=== PATIENT | male | born 1945 | race Caucasian/White ===

== ENCOUNTER 2020-09-27 18:00 | Emergency (ER) | payer MEDICARE ==
[2020-09-27 19:00] LABS: #Eosinphils 0.1 thou/uL (0.0-0.7); #Monocytes 1.1 thou/uL (0.11-0.59); #Neutrophils 9.8 thou/uL (1.40-6.50); %Basophils 0.1 % (0.0-1.0); %Eosinophils 1.1 % (0.0-10.0); %Lymphocytes 8.1 % (21.0-51.0); %Neutrophils 81.7 % (42.0-75.0); Hemoglobin 11.8 g/dL (14.0-18.0); Mean Corpuscular HGB CONC 31.7 g/dL (32.0-36.0); Mean Corpuscular Hemoglobin 30.7 pg (27.0-31.0); Mean Platelet Volume 8.5 fL (7.4-10.4); Platelet Count 225 thou/uL (130-400); RBC Distribution Width 12.2 % (11.5-14.5); Red Blood Cell (RBC) Count 3.82 mill/uL (4.70-6.10); White Blood Cell (WBC) Count 11.9 thou/uL (4.8-10.8)
[2020-09-27 19:26] LABS: ALT (SGPT) 15 U/L (8-55); AST (SGOT) 20 U/L (5-34); Alkaline Phosphatase 78 U/L (40-110); Anion Gap 15 mmol/L (10-20); BUN (Urea Nitrogen) 33 mg/dL (8.4-25.7); Bilirubin, Total 0.8 mg/dL (0.2-1.2); Calc. Creatinine Clearance 0 mL/min (70-130); Calcium 9.6 mg/dL (7.8-10.44); Carbon Dioxide 32 mmol/L (23-31); Chloride 100 mmol/L (98-107); Globulin 3.6 g/dL (2.4-3.5); Glucose 133 mg/dL (83-110); Potassium 4.7 mmol/L (3.5-5.1); Protein, Total 7.6 g/dL (5.8-8.1); Sodium 142 mmol/L (136-145)
[2020-09-27] MEDS ORDERED: methylPREDNISolone Sod Succ/PF 125 MG/2 ML VIAL ONE (19:47)
[2020-09-27 20:11] LABS: INR-International Normal Ratio 1.4; PTT 34.3 sec (22.9-36.1)
[2020-09-27] MEDS ORDERED: Furosemide 40 MG/4 ML VIAL ONE (20:54)
== END 2020-09-27 21:11 | disposition home or self-care (01) ==
LOC: ERS 18:00
DX: J44.1 Chronic obstructive pulmonary disease with (acute) exacerbation (principal); I50.9 Heart failure, unspecified; J18.9 Pneumonia, unspecified organism; Z79.899 Other long term (current) drug therapy; Z79.01 Long term (current) use of anticoagulants; Z79.82 Long term (current) use of aspirin; J44.9 Chronic obstructive pulmonary disease, unspecified; I10 Essential (primary) hypertension; E78.00 Pure hypercholesterolemia, unspecified; F17.220 Nicotine dependence, chewing tobacco, uncomplicated
CPT/HCPCS: 36415; 71045; 80053; 85025; 85610; 85730; 93005; 96374; 96375; J1940; J2930

== ENCOUNTER 2021-02-05 17:30 | Inpatient (IN) | payer MEDICARE ==
[~2021-02-05 17:30] MED LIST: Iopamidol-370 76% 500 ML 1 ML ONE
[2021-02-05] MEDS ORDERED: EPINEPHrine 1 MG/10 ML Abboject SYRINGE ONE (17:41)
[2021-02-05] MEDS ORDERED: Sodium Bicarb 50 MEQ/50 ML Abboject 8.4% SYRINGE ONE (17:41)
[2021-02-05] MEDS ORDERED: Ketamine 50 MG/ML (10ML VIAL) ONE (17:50)
[2021-02-05] MEDS ORDERED: Rocuronium Bromide 10 MG/ML (10ML VIAL) ONE (17:50)
[2021-02-05 17:58] LABS: Hemoglobin 11.4 g/dL (14.0-18.0); Mean Corpuscular Hemoglobin 29.1 pg (27.0-31.0); Mean Corpuscular Volume 96.9 fL (78.0-98.0); Red Blood Cell (RBC) Count 3.91 mill/uL (4.70-6.10)
[2021-02-05 17:59] LABS: #Lymphocytes 0.6 thou/uL (1.20-3.40); #Monocytes 1.6 thou/uL (0.11-0.59); #Neutrophils 14.8 thou/uL (1.40-6.50); %Basophils 0.1 % (0.0-1.0); %Eosinophils 0.2 % (0.0-10.0); %Lymphocytes 3.4 % (21.0-51.0); %Monocytes 9.5 % (0.0-10.0); %Neutrophils 86.8 % (42.0-75.0)
[2021-02-05 18:04] LABS: Mean Platelet Volume 8.6 fL (7.4-10.4); Platelet Count 245 thou/uL (130-400); RBC Distribution Width 13.9 % (11.5-14.5)
[2021-02-05 18:08] LABS: INR-International Normal Ratio 1.1; Prothrombin Time 14.4 sec (12.0-14.7)
[2021-02-05 18:10] LABS: PTT 33.9 sec (22.9-36.1)
[2021-02-05] MEDS ORDERED: Norepinephrine 8 MG/0.9% NS 250 ML ONE (18:10)
[2021-02-05 18:12] LABS: Actual Bicarbonate (HCO3a) 40.3 mEq/L (22-28); Base Excess (BEa) 11.5 mEq/L (-2.0 to +3.0); Calcium, Ionized (arterial) 1.12 mmol/L (1.12-1.30); Carboxyhemoglobin (COHb) 0.9 gm% (0.0-3.0); O2 Tension (PaO2), arterial 372.7 mmHg (> 70.0); Potassium - ABG Lab 4.61 mmol/L (3.70-5.30); pH, Arterial 7.32 (7.35-7.45)
[2021-02-05 18:20] LABS: Bacteria/HPF None Seen HPF (None Seen); Bilirubin Negative (Negative); Blood, Urine Trace (Negative); Clarity Turbid (Clear); Glucose, Urine (Dipstick) Normal (Negative); Ketone, Urine Negative (Negative); Leukocyte Negative Leu/uL (Negative); Nitrite Negative (Negative); Protein, Urine (Dipstick) 100 mg/dL (Neg-Trace); RBC/HPF 0-3 HPF (0-3); Squamous Epithelial 0-3 HPF (0-3); WBC/HPF 0-3 HPF (0-3); pH, Urine 5.5 (5.0-9.0)
[2021-02-05 18:20] LABS: Hypochromia SLIGHT = 6-15 cells (100X) (0-5/hpf); MDiff Complete? YES; Platelet Morphology Comment Appears Adequate; Polychromasia SLIGHT = 2-3 cells (100X) (0-2/hpf)
[2021-02-05 18:20] LABS: Peep/CPAP 7.5 cmH2O; Puncture Site RRA
[2021-02-05 18:25] LABS: ALT (SGPT) 27 U/L (8-55); AST (SGOT) 33 U/L (5-34); Alkaline Phosphatase 111 U/L (40-110); BUN (Urea Nitrogen) 34 mg/dL (8.4-25.7); Bilirubin, Total 0.5 mg/dL (0.2-1.2); CK (CPK) 147 U/L (30-200); Calc. Creatinine Clearance 0 mL/min (70-130); Calcium 9.4 mg/dL (7.8-10.44); Globulin 3.5 g/dL (2.4-3.5); Glucose 197 mg/dL (83-110); Protein, Total 7.5 g/dL (5.8-8.1)
[2021-02-05 18:34] LABS: Anion Gap 17 mmol/L (10-20); Carbon Dioxide 34 mmol/L (23-31); Chloride 96 mmol/L (98-107); Potassium 5.3 mmol/L (3.5-5.1); Sodium 142 mmol/L (136-145)
[2021-02-05 18:48] LABS: CKMB 7.1 ng/mL (0-6.6)
[2021-02-05] MEDS ORDERED: Furosemide 40 MG/4 ML VIAL ONE (19:03)
[2021-02-05 19:06] LABS: SARS-CoV-2 NAA Rapid Test Not Detected (NotDetected)
[2021-02-05] MEDS ORDERED: Ondansetron PF 4 MG/2 ML Vial IVP PRN (19:54)
[2021-02-05] MEDS ORDERED: Lorazepam 2 MG/ML VIAL ONE (20:41)
[2021-02-05] MEDS ORDERED: methylPREDNISolone Sod Succ/PF 125 MG/2 ML VIAL IVP SCH (21:00)
[2021-02-05] MEDS ORDERED: Famotidine 20 MG TAB PO SCH (21:00)
[2021-02-05 21:04] LABS: Troponin I 0.048 ng/mL (< 0.028)
[2021-02-05] MEDS ORDERED: methylPREDNISolone Sod Succ/PF 125 MG/2 ML VIAL ONE (21:09)
[2021-02-05] MEDS ORDERED: Cefepime 1 GM VIAL ONE (21:09)
[2021-02-05] MEDS: Cefepime 1 GM in Sodium Chloride 0.9% 100 ML IVPB SCH (21:22)
[2021-02-05 22:04] LABS: Actual Bicarbonate (HCO3a) 37.9 mEq/L (22-28); Analyzer IN Cardio ER; Base Excess (BEa) 10.3 mEq/L (-2.0 to +3.0); Calcium, Ionized (arterial) 1.13 mmol/L (1.12-1.30); Carboxyhemoglobin (COHb) 0.5 gm% (0.0-3.0); Hemoglobin (Hb) 11.5 g/dL (14.0-18.0); Potassium - ABG Lab 4.58 mmol/L (3.70-5.30); pH, Arterial 7.36 (7.35-7.45)
[2021-02-05 22:10] LABS: Puncture Site LRA
[2021-02-05] MEDS ORDERED: Propofol 1,000 MG/100 ML VIAL IV ONE (22:13)
[2021-02-05] MEDS ORDERED: Propofol BOLUS 1,000 MG/100 ML VIAL IV PRN (22:45)
[2021-02-05] MEDS ORDERED: Fentanyl BOLUS 250 ML IVPB PRN (22:45)
[2021-02-05] MEDS ORDERED: Lorazepam 2 MG/ML VIAL SLOW IVP PRN (22:45)
[2021-02-05] MEDS ORDERED: Morphine 2 MG/ML VIAL SLOW IVP PRN (22:45)
[2021-02-05] MEDS: Propofol 1,000 MG/100 ML VIAL IV PRN (22:49)
[2021-02-05 23:57] LABS: Troponin I 0.081 ng/mL (< 0.028)
[2021-02-06] MEDS ORDERED: Norepinephrine 8 MG/0.9% NS 250 ML ONE (03:23)
[2021-02-06] MEDS: Norepinephrine 8 MG/0.9% NS 250 ML IVPB SCH ×2 (03:26→20:19)
[2021-02-06] MEDS ORDERED: Propofol 1,000 MG/100 ML VIAL IV ONE (03:40)
[2021-02-06] MEDS ORDERED: Acetaminophen 325 MG TAB ONE (04:06)
[2021-02-06] MEDS: Acetaminophen 325 MG TAB PO PRN (04:19)
[2021-02-06 04:43] LABS: Band 14 % (5-11); Hemoglobin 10.6 g/dL (14.0-18.0); Hypochromia SLIGHT = 6-15 cells (100X) (0-5/hpf); Lymphocytes 5 % (21-51); MDiff Complete? YES; Mean Corpuscular HGB CONC 29.7 g/dL (32.0-36.0); Mean Corpuscular Hemoglobin 27.7 pg (27.0-31.0); Mean Platelet Volume 9.1 fL (7.4-10.4); Monocytes 3 % (0-10); Neutrophil 78 % (42-75); Platelet Count 238 thou/uL (130-400); Platelet Morphology Comment Appears Adequate; Red Blood Cell (RBC) Count 3.84 mill/uL (4.70-6.10); White Blood Cell (WBC) Count 25.4 thou/uL (4.8-10.8)
[2021-02-06] MEDS: Propofol 1,000 MG/100 ML VIAL IV PRN ×4 (05:05→21:13)
[2021-02-06 05:12] LABS: ALT (SGPT) 29 U/L (8-55); AST (SGOT) 41 U/L (5-34); Albumin 3.5 g/dL (3.4-4.8); Alkaline Phosphatase 94 U/L (40-110); Anion Gap 19 mmol/L (10-20); BUN (Urea Nitrogen) 36 mg/dL (8.4-25.7); Calc. Creatinine Clearance 69 mL/min (70-130); Calcium 9.6 mg/dL (7.8-10.44); Carbon Dioxide 35 mmol/L (23-31); Chloride 95 mmol/L (98-107); Globulin 3.2 g/dL (2.4-3.5); Glucose 152 mg/dL (83-110); Magnesium 2.5 mg/dL (1.6-2.6); Potassium 5.6 mmol/L (3.5-5.1); Protein, Total 6.7 g/dL (5.8-8.1); Sodium 143 mmol/L (136-145)
[2021-02-06] MEDS ORDERED: Dextrose 50% Abboject 50 ML SYRINGE SLOW IVP PRN (05:42)
[2021-02-06] MEDS: Furosemide 40 MG/4 ML VIAL SLOW IVP SCH ×2 (05:53→14:00)
[2021-02-06] MEDS: methylPREDNISolone Sod Succ 40 MG VIAL IVP SCH ×4 (05:53→20:22)
[2021-02-06] MEDS ORDERED: Insulin Regular 300 UNITS/3 ML VIAL IVP SCH (06:00)
[2021-02-06] MEDS ORDERED: Calcium Gluc 4.6 MEQ/10 ML (100 MG/ML) SLOW IVP SCH (06:00)
[2021-02-06] MEDS ORDERED: Vancomycin HCl 2.5 GM in Sodium Chloride 0.9% 500 ML IVPB SCH (07:45)
[2021-02-06 08:57] LABS: Base Excess (BEa) 15.1 mEq/L (-2.0 to +3.0); CO2 Tension 51.4 mmHg (35.0-45.0); Calcium, Ionized (arterial) 1.17 mmol/L (1.12-1.30); Carboxyhemoglobin (COHb) 0.3 gm% (0.0-3.0); Hemoglobin (Hb) 10.5 g/dL (14.0-18.0); O2 Tension (PaO2), arterial 148.8 mmHg (> 70.0); Potassium - ABG Lab 4.22 mmol/L (3.70-5.30); pH, Arterial 7.51 (7.35-7.45)
[2021-02-06] MEDS ORDERED: Apixaban 5 MG TAB PO SCH (09:00)
[2021-02-06] MEDS: Famotidine 20 MG TAB PO SCH ×2 (09:03→20:22)
[2021-02-06 09:04] LABS: Puncture Site LRA
[2021-02-06] MEDS: Cefepime 1 GM in Sodium Chloride 0.9% 100 ML IVPB SCH ×2 (09:09→20:22)
[2021-02-06] MEDS ORDERED: Fentanyl CADD 100 ML ONE (12:43)
[2021-02-06] MEDS: Fentanyl CADD 100 ML IV SCH ×2 (12:54→23:56)
[2021-02-06] MEDS: Enoxaparin Sodium 80 MG/0.8 ML SYRINGE SC SCH (20:36)
[2021-02-06] MEDS ORDERED: Fentanyl 100 MCG/2 ML VIAL ONE (23:46)
[2021-02-07] MEDS: Propofol 1,000 MG/100 ML VIAL IV PRN ×5 (02:35→20:24)
[2021-02-07] MEDS: methylPREDNISolone Sod Succ 40 MG VIAL IVP SCH ×4 (02:35→20:26)
[2021-02-07 05:35] LABS: ALT (SGPT) 25 U/L (8-55); AST (SGOT) 38 U/L (5-34); Albumin 3.1 g/dL (3.4-4.8); Alkaline Phosphatase 76 U/L (40-110); BUN (Urea Nitrogen) 45 mg/dL (8.4-25.7); Bilirubin, Total 0.8 mg/dL (0.2-1.2); Calc. Creatinine Clearance 81 mL/min (70-130); Calcium 9.3 mg/dL (7.8-10.44); Chloride 95 mmol/L (98-107); Globulin 3.2 g/dL (2.4-3.5); Glucose 133 mg/dL (83-110); Magnesium 2.6 mg/dL (1.6-2.6); Potassium 5.3 mmol/L (3.5-5.1); Protein, Total 6.3 g/dL (5.8-8.1); Sodium 143 mmol/L (136-145)
[2021-02-07 05:38] LABS: Anion Gap 20 mmol/L (10-20); Carbon Dioxide 33 mmol/L (23-31)
[2021-02-07 05:39] LABS: Band 5 % (5-11); Hemoglobin 9.8 g/dL (14.0-18.0); Hypochromia SLIGHT = 6-15 cells (100X) (0-5/hpf); Lymphocytes 3 % (21-51); MDiff Complete? YES; Mean Corpuscular HGB CONC 31.1 g/dL (32.0-36.0); Mean Corpuscular Hemoglobin 28.3 pg (27.0-31.0); Mean Platelet Volume 9.8 fL (7.4-10.4); Monocytes 5 % (0-10); Neutrophil 87 % (42-75); Platelet Count 234 thou/uL (130-400); Platelet Morphology Comment Appears Adequate; RBC Distribution Width 14.5 % (11.5-14.5); Red Blood Cell (RBC) Count 3.46 mill/uL (4.70-6.10); White Blood Cell (WBC) Count 22.8 thou/uL (4.8-10.8)
[2021-02-07] MEDS: Furosemide 40 MG/4 ML VIAL SLOW IVP SCH ×2 (06:02→14:41)
[2021-02-07] MEDS: VANCOMYCIN 2 GRAM/400 ML BAG 2 GM in Premix Bag 1 BAG IVPB SCH (06:02)
[2021-02-07 07:37] LABS: Actual Bicarbonate (HCO3a) 40.8 mEq/L (22-28); CO2 Tension 57.3 mmHg (35.0-45.0); Calcium, Ionized (arterial) 1.17 mmol/L (1.12-1.30); Hemoglobin (Hb) 10.2 g/dL (14.0-18.0); O2 Tension (PaO2), arterial 170.6 mmHg (> 70.0); Potassium - ABG Lab 4.03 mmol/L (3.70-5.30); pH, Arterial 7.47 (7.35-7.45)
[2021-02-07 07:38] LABS: ALV-art Gradient 328.175 mmHg (0-20); Puncture Site RRA
[2021-02-07] MEDS: Famotidine 20 MG TAB PO SCH ×2 (08:34→20:25)
[2021-02-07] MEDS: Enoxaparin Sodium 80 MG/0.8 ML SYRINGE SC SCH ×2 (08:34→20:25)
[2021-02-07] MEDS: Cefepime 1 GM in Sodium Chloride 0.9% 100 ML IVPB SCH ×2 (09:00→20:25)
[2021-02-07] MEDS ORDERED: Fentanyl CADD 100 ML ONE (09:55)
[2021-02-07] MEDS: Fentanyl CADD 100 ML IV SCH (10:00)
[2021-02-07] MEDS: Norepinephrine 8 MG/0.9% NS 250 ML IVPB SCH (17:52)
[2021-02-08] MEDS: Propofol 1,000 MG/100 ML VIAL IV PRN ×6 (00:49→22:35)
[2021-02-08] MEDS: methylPREDNISolone Sod Succ 40 MG VIAL IVP SCH ×4 (03:00→20:06)
[2021-02-08] MEDS ORDERED: Fentanyl CADD 100 ML ONE ×2 (04:23→20:20)
[2021-02-08] MEDS: Fentanyl CADD 100 ML IV SCH ×2 (04:31→20:25)
[2021-02-08 04:57] LABS: #Lymphocytes 0.4 thou/uL (1.20-3.40); #Monocytes 0.9 thou/uL (0.11-0.59); #Neutrophils 16.1 thou/uL (1.40-6.50); %Eosinophils 0.1 % (0.0-10.0); %Lymphocytes 2.5 % (21.0-51.0); %Monocytes 5.2 % (0.0-10.0); %Neutrophils 92.2 % (42.0-75.0); Hemoglobin 9.4 g/dL (14.0-18.0); Mean Corpuscular HGB CONC 30.7 g/dL (32.0-36.0); Mean Corpuscular Hemoglobin 28.5 pg (27.0-31.0); Mean Corpuscular Volume 92.6 fL (78.0-98.0); Mean Platelet Volume 8.8 fL (7.4-10.4); Platelet Count 227 thou/uL (130-400); RBC Distribution Width 14.2 % (11.5-14.5); White Blood Cell (WBC) Count 17.5 thou/uL (4.8-10.8)
[2021-02-08] MEDS: VANCOMYCIN 2 GRAM/400 ML BAG 2 GM in Premix Bag 1 BAG IVPB SCH (05:01)
[2021-02-08] MEDS: Furosemide 40 MG/4 ML VIAL SLOW IVP SCH ×2 (05:01→13:07)
[2021-02-08 05:29] LABS: Magnesium 2.8 mg/dL (1.6-2.6)
[2021-02-08 07:24] LABS: Actual Bicarbonate (HCO3a) 40.9 mEq/L (22-28); Base Excess (BEa) 12.4 mEq/L (-2.0 to +3.0); Calcium, Ionized (arterial) 1.23 mmol/L (1.12-1.30); Carboxyhemoglobin (COHb) 0.7 gm% (0.0-3.0); Hemoglobin (Hb) 11.6 g/dL (14.0-18.0); Potassium - ABG Lab 3.66 mmol/L (3.70-5.30); pH, Arterial 7.35 (7.35-7.45)
[2021-02-08 07:31] LABS: ALV-art Gradient 152.625 mmHg (0-20); CO2 Tension 75.9 mmHg (35.0-45.0); Puncture Site RRA
[2021-02-08 07:44] LABS: Vancomycin, Trough 62.8 ug/mL
[2021-02-08] MEDS: Famotidine 20 MG TAB PO SCH ×2 (07:59→20:05)
[2021-02-08] MEDS: Cefepime 1 GM in Sodium Chloride 0.9% 100 ML IVPB SCH ×2 (07:59→20:05)
[2021-02-08] MEDS: Enoxaparin Sodium 80 MG/0.8 ML SYRINGE SC SCH ×2 (07:59→20:05)
[2021-02-08 11:31] LABS: BUN (Urea Nitrogen) 47 mg/dL (8.4-25.7); Calc. Creatinine Clearance 95 mL/min (70-130); Calcium 8.8 mg/dL (7.8-10.44); Glucose 156 mg/dL (83-110)
[2021-02-08 11:49] LABS: Anion Gap 17 mmol/L (10-20); Carbon Dioxide 36 mmol/L (23-31); Chloride 99 mmol/L (98-107); Potassium 3.8 mmol/L (3.5-5.1); Sodium 148 mmol/L (136-145)
[2021-02-09] MEDS: methylPREDNISolone Sod Succ 40 MG VIAL IVP SCH ×4 (03:06→20:36)
[2021-02-09] MEDS: Propofol 1,000 MG/100 ML VIAL IV PRN ×4 (03:06→22:01)
[2021-02-09 04:56] LABS: BUN (Urea Nitrogen) 48 mg/dL (8.4-25.7); Calc. Creatinine Clearance 114 mL/min (70-130); Calcium 9.2 mg/dL (7.8-10.44); Glucose 143 mg/dL (83-110)
[2021-02-09 05:08] LABS: Anion Gap 16 mmol/L (10-20); Carbon Dioxide 36 mmol/L (23-31); Chloride 99 mmol/L (98-107); Potassium 3.9 mmol/L (3.5-5.1); Sodium 147 mmol/L (136-145)
[2021-02-09] MEDS: Furosemide 40 MG/4 ML VIAL SLOW IVP SCH (05:24)
[2021-02-09 05:28] LABS: #Lymphocytes 0.4 thou/uL (1.20-3.40); #Neutrophils 14.2 thou/uL (1.40-6.50); %Basophils 0.1 % (0.0-1.0); %Eosinophils 0.2 % (0.0-10.0); %Lymphocytes 2.2 % (21.0-51.0); %Monocytes 6.6 % (0.0-10.0); %Neutrophils 90.9 % (42.0-75.0); Hemoglobin 9.1 g/dL (14.0-18.0); Mean Corpuscular HGB CONC 29.6 g/dL (32.0-36.0); Mean Corpuscular Hemoglobin 27.5 pg (27.0-31.0); Mean Corpuscular Volume 92.7 fL (78.0-98.0); Platelet Count 226 thou/uL (130-400); Red Blood Cell (RBC) Count 3.32 mill/uL (4.70-6.10); White Blood Cell (WBC) Count 15.6 thou/uL (4.8-10.8)
[2021-02-09 06:40] LABS: Vancomycin, Trough 20.4 ug/mL
[2021-02-09] MEDS: VANCOMYCIN 2 GRAM/400 ML BAG 2 GM in Premix Bag 1 BAG IVPB SCH (06:45)
[2021-02-09 07:45] LABS: Actual Bicarbonate (HCO3a) 44.3 mEq/L (22-28); Base Excess (BEa) 17.4 mEq/L (-2.0 to +3.0); CO2 Tension 67.8 mmHg (35.0-45.0); Carboxyhemoglobin (COHb) 0.3 gm% (0.0-3.0); Hemoglobin (Hb) 9.9 g/dL (14.0-18.0); O2 Tension (PaO2), arterial 88.3 mmHg (> 70.0); Potassium - ABG Lab 3.73 mmol/L (3.70-5.30); pH, Arterial 7.43 (7.35-7.45)
[2021-02-09 07:46] LABS: Puncture Site LRA
[2021-02-09] MEDS: Enoxaparin Sodium 80 MG/0.8 ML SYRINGE SC SCH ×2 (08:51→20:35)
[2021-02-09] MEDS: Cefepime 1 GM in Sodium Chloride 0.9% 100 ML IVPB SCH ×2 (08:51→20:36)
[2021-02-09] MEDS: Famotidine 20 MG TAB PO SCH ×2 (08:51→20:36)
[2021-02-09] MEDS: Fentanyl CADD 100 ML IV SCH (11:41)
[2021-02-10] MEDS: methylPREDNISolone Sod Succ 40 MG VIAL IVP SCH ×4 (02:45→20:07)
[2021-02-10] MEDS: Propofol 1,000 MG/100 ML VIAL IV PRN ×4 (04:06→20:22)
[2021-02-10 05:25] LABS: BUN (Urea Nitrogen) 51 mg/dL (8.4-25.7); Calc. Creatinine Clearance 119 mL/min (70-130); Calcium 9.3 mg/dL (7.8-10.44); Glucose 153 mg/dL (83-110)
[2021-02-10 05:31] LABS: #Lymphocytes 0.2 thou/uL (1.20-3.40); #Monocytes 0.6 thou/uL (0.11-0.59); #Neutrophils 11.5 thou/uL (1.40-6.50); %Eosinophils 0.2 % (0.0-10.0); %Lymphocytes 1.9 % (21.0-51.0); %Monocytes 4.9 % (0.0-10.0); Hemoglobin 9.4 g/dL (14.0-18.0); Mean Corpuscular HGB CONC 30.6 g/dL (32.0-36.0); Mean Corpuscular Hemoglobin 28.3 pg (27.0-31.0); Mean Corpuscular Volume 92.5 fL (78.0-98.0); Mean Platelet Volume 8.9 fL (7.4-10.4); Platelet Count 217 thou/uL (130-400); RBC Distribution Width 14.1 % (11.5-14.5); Red Blood Cell (RBC) Count 3.33 mill/uL (4.70-6.10); White Blood Cell (WBC) Count 12.4 thou/uL (4.8-10.8)
[2021-02-10 05:36] LABS: Chloride 100 mmol/L (98-107); Potassium 4.1 mmol/L (3.5-5.1); Sodium 149 mmol/L (136-145)
[2021-02-10] MEDS ORDERED: Fentanyl CADD 100 ML ONE (05:53)
[2021-02-10] MEDS: Fentanyl CADD 100 ML IV SCH (05:59)
[2021-02-10 06:08] LABS: Carbon Dioxide 37 mmol/L (23-31)
[2021-02-10 07:00] LABS: Anion Gap 16 mmol/L (10-20)
[2021-02-10 07:05] LABS: Vancomycin, Trough 25.2 ug/mL
[2021-02-10 08:19] LABS: Actual Bicarbonate (HCO3a) 41.2 mEq/L (22-28); Calcium, Ionized (arterial) 1.26 mmol/L (1.12-1.30); Hemoglobin (Hb) 9.7 g/dL (14.0-18.0); O2 Tension (PaO2), arterial 68.7 mmHg (> 70.0); Potassium - ABG Lab 3.87 mmol/L (3.70-5.30); pH, Arterial 7.39 (7.35-7.45)
[2021-02-10 08:21] LABS: Puncture Site LRA
[2021-02-10] MEDS: Enoxaparin Sodium 80 MG/0.8 ML SYRINGE SC SCH ×2 (08:22→20:06)
[2021-02-10] MEDS: Famotidine 20 MG TAB PO SCH ×2 (08:22→20:07)
[2021-02-10] MEDS: Cefepime 1 GM in Sodium Chloride 0.9% 100 ML IVPB SCH ×2 (08:23→20:08)
[2021-02-10] MEDS: Furosemide 40 MG/4 ML VIAL SLOW IVP SCH (08:23)
[2021-02-10] MEDS: Acetaminophen 325 MG TAB PO PRN (20:07)
[2021-02-11] MEDS: Fentanyl CADD 100 ML IV SCH (01:30)
[2021-02-11] MEDS: Propofol 1,000 MG/100 ML VIAL IV PRN ×5 (02:06→21:53)
[2021-02-11] MEDS: methylPREDNISolone Sod Succ 40 MG VIAL IVP SCH ×4 (02:08→21:13)
[2021-02-11 03:40] LABS: #Lymphocytes 0.5 thou/uL (1.20-3.40); #Monocytes 0.9 thou/uL (0.11-0.59); #Neutrophils 11.8 thou/uL (1.40-6.50); %Eosinophils 0.2 % (0.0-10.0); %Lymphocytes 3.9 % (21.0-51.0); %Monocytes 6.6 % (0.0-10.0); %Neutrophils 89.4 % (42.0-75.0); Hemoglobin 9.5 g/dL (14.0-18.0); Mean Corpuscular HGB CONC 31.5 g/dL (32.0-36.0); Mean Corpuscular Hemoglobin 28.5 pg (27.0-31.0); Mean Corpuscular Volume 90.4 fL (78.0-98.0); Mean Platelet Volume 8.9 fL (7.4-10.4); Platelet Count 211 thou/uL (130-400); RBC Distribution Width 14.1 % (11.5-14.5); Red Blood Cell (RBC) Count 3.32 mill/uL (4.70-6.10); White Blood Cell (WBC) Count 13.2 thou/uL (4.8-10.8)
[2021-02-11 04:15] LABS: BUN (Urea Nitrogen) 55 mg/dL (8.4-25.7); Calc. Creatinine Clearance 127 mL/min (70-130); Calcium 9.2 mg/dL (7.8-10.44); Glucose 157 mg/dL (83-110)
[2021-02-11 04:24] LABS: Anion Gap 12 mmol/L (10-20); Chloride 100 mmol/L (98-107); Potassium 3.7 mmol/L (3.5-5.1); Sodium 150 mmol/L (136-145)
[2021-02-11 04:29] LABS: Carbon Dioxide 42 mmol/L (23-31)
[2021-02-11 08:01] LABS: Actual Bicarbonate (HCO3a) 46.3 mEq/L (22-28); Base Excess (BEa) 20.7 mEq/L (-2.0 to +3.0); Calcium, Ionized (arterial) 1.21 mmol/L (1.12-1.30); Carboxyhemoglobin (COHb) 0.3 gm% (0.0-3.0); Hemoglobin (Hb) 10.4 g/dL (14.0-18.0); O2 Tension (PaO2), arterial 68.4 mmHg (> 70.0); Potassium - ABG Lab 3.64 mmol/L (3.70-5.30); pH, Arterial 7.52 (7.35-7.45)
[2021-02-11 08:04] LABS: Puncture Site LRA
[2021-02-11] MEDS: Amiodarone 200 MG TAB PER TUBE SCH (08:59)
[2021-02-11] MEDS: Enoxaparin Sodium 80 MG/0.8 ML SYRINGE SC SCH ×2 (08:59→21:01)
[2021-02-11] MEDS: Famotidine 20 MG TAB PO SCH ×2 (09:00→21:01)
[2021-02-11] MEDS: Cefepime 1 GM in Sodium Chloride 0.9% 100 ML IVPB SCH ×2 (09:00→21:02)
[2021-02-11] MEDS: Furosemide 40 MG/4 ML VIAL SLOW IVP SCH (09:00)
[2021-02-11] MEDS ORDERED: acetaZOLAMIDE Sodium 500 MG in Sodium Chloride 0.9% 50 ML IVPB SCH (10:00)
[2021-02-11] MEDS ORDERED: methylPREDNISolone Sod Succ 40 MG VIAL ONE (21:11)
[2021-02-12] MEDS: Fentanyl CADD 100 ML IV SCH ×2 (01:03→23:30)
[2021-02-12] MEDS: methylPREDNISolone Sod Succ 40 MG VIAL IVP SCH ×4 (02:54→20:25)
[2021-02-12] MEDS: Propofol 1,000 MG/100 ML VIAL IV PRN ×4 (03:20→20:27)
[2021-02-12 03:31] LABS: #Lymphocytes 0.5 thou/uL (1.20-3.40); #Monocytes 1.4 thou/uL (0.11-0.59); #Neutrophils 16.8 thou/uL (1.40-6.50); %Eosinophils 0.1 % (0.0-10.0); %Lymphocytes 2.6 % (21.0-51.0); %Monocytes 7.4 % (0.0-10.0); %Neutrophils 89.9 % (42.0-75.0); Hemoglobin 9.7 g/dL (14.0-18.0); Mean Corpuscular HGB CONC 31.4 g/dL (32.0-36.0); Mean Corpuscular Hemoglobin 28.4 pg (27.0-31.0); Mean Corpuscular Volume 90.2 fL (78.0-98.0); Mean Platelet Volume 8.8 fL (7.4-10.4); Platelet Count 208 thou/uL (130-400); RBC Distribution Width 14.2 % (11.5-14.5); Red Blood Cell (RBC) Count 3.41 mill/uL (4.70-6.10); White Blood Cell (WBC) Count 18.7 thou/uL (4.8-10.8)
[2021-02-12 03:52] LABS: BUN (Urea Nitrogen) 52 mg/dL (8.4-25.7); Calc. Creatinine Clearance 135 mL/min (70-130); Calcium 8.9 mg/dL (7.8-10.44); Glucose 142 mg/dL (83-110)
[2021-02-12 04:03] LABS: Anion Gap 12 mmol/L (10-20); Carbon Dioxide 40 mmol/L (23-31); Chloride 101 mmol/L (98-107); Potassium 3.4 mmol/L (3.5-5.1); Sodium 150 mmol/L (136-145)
[2021-02-12 08:13] LABS: Base Excess (BEa) 17.9 mEq/L (-2.0 to +3.0); O2 Tension (PaO2), arterial 72.7 mmHg (> 70.0); pH, Arterial 7.43 (7.35-7.45)
[2021-02-12 08:14] LABS: Hemoglobin (Hb) 10.1 g/dL (14.0-18.0); Potassium - ABG Lab 3.42 mmol/L (3.70-5.30)
[2021-02-12 08:32] LABS: CO2 Tension 69.4 mmHg (35.0-45.0); Puncture Site LRA
[2021-02-12] MEDS: Famotidine 20 MG TAB PO SCH ×2 (08:56→20:32)
[2021-02-12] MEDS: Enoxaparin Sodium 80 MG/0.8 ML SYRINGE SC SCH ×2 (08:56→20:29)
[2021-02-12] MEDS: Amiodarone 200 MG TAB PER TUBE SCH (08:56)
[2021-02-13] MEDS: methylPREDNISolone Sod Succ 40 MG VIAL IVP SCH ×3 (02:42→21:49)
[2021-02-13 04:22] LABS: #Lymphocytes 0.4 thou/uL (1.20-3.40); #Monocytes 0.7 thou/uL (0.11-0.59); #Neutrophils 16.1 thou/uL (1.40-6.50); %Basophils 0.2 % (0.0-1.0); %Eosinophils 0.1 % (0.0-10.0); %Lymphocytes 2.2 % (21.0-51.0); %Neutrophils 93.4 % (42.0-75.0); Hemoglobin 9.5 g/dL (14.0-18.0); Mean Corpuscular Hemoglobin 28.7 pg (27.0-31.0); Mean Corpuscular Volume 89.6 fL (78.0-98.0); Mean Platelet Volume 9.1 fL (7.4-10.4); Platelet Count 199 thou/uL (130-400); RBC Distribution Width 14.1 % (11.5-14.5); Red Blood Cell (RBC) Count 3.32 mill/uL (4.70-6.10); White Blood Cell (WBC) Count 17.3 thou/uL (4.8-10.8)
[2021-02-13 04:42] LABS: BUN (Urea Nitrogen) 49 mg/dL (8.4-25.7); Calc. Creatinine Clearance 144 mL/min (70-130); Calcium 8.8 mg/dL (7.8-10.44); Glucose 149 mg/dL (83-110)
[2021-02-13 04:51] LABS: Anion Gap 12 mmol/L (10-20); Carbon Dioxide 40 mmol/L (23-31); Chloride 101 mmol/L (98-107); Potassium 3.7 mmol/L (3.5-5.1); Sodium 149 mmol/L (136-145)
[2021-02-13] MEDS: Propofol 1,000 MG/100 ML VIAL IV PRN (06:43)
[2021-02-13 06:53] LABS: Base Excess (BEa) 17.7 mEq/L (-2.0 to +3.0); Calcium, Ionized (arterial) 1.19 mmol/L (1.12-1.30); Carboxyhemoglobin (COHb) 0.5 gm% (0.0-3.0); Hemoglobin (Hb) 10.3 g/dL (14.0-18.0); Potassium - ABG Lab 3.73 mmol/L (3.70-5.30); pH, Arterial 7.42 (7.35-7.45)
[2021-02-13 06:54] LABS: CO2 Tension 71.2 mmHg (35.0-45.0); Puncture Site RRA
[2021-02-13] MEDS: Enoxaparin Sodium 80 MG/0.8 ML SYRINGE SC SCH ×2 (09:00→21:49)
[2021-02-13] MEDS: Famotidine 20 MG TAB PO SCH ×3 (09:00→21:49)
[2021-02-13] MEDS: Amiodarone 200 MG TAB PER TUBE SCH (09:00)
[2021-02-13] MEDS ORDERED: methylPREDNISolone Sod Succ 40 MG VIAL IVP SCH (15:00)
[2021-02-13] MEDS ORDERED: acetaZOLAMIDE Sodium 500 mg Vial IVP SCH (15:00)
[2021-02-13 23:41] LABS: SARS-CoV-2 PCR by NAA Not Detected (NotDetected)
[2021-02-14 04:19] LABS: BUN (Urea Nitrogen) 47 mg/dL (8.4-25.7); Calc. Creatinine Clearance 154 mL/min (70-130); Calcium 9.2 mg/dL (7.8-10.44); Glucose 156 mg/dL (83-110)
[2021-02-14 04:28] LABS: Anion Gap 19 mmol/L (10-20); Carbon Dioxide 34 mmol/L (23-31); Chloride 103 mmol/L (98-107); Potassium 3.5 mmol/L (3.5-5.1); Sodium 152 mmol/L (136-145)
[2021-02-14] MEDS: methylPREDNISolone Sod Succ 40 MG VIAL IVP SCH ×3 (06:40→21:50)
[2021-02-14] MEDS: Enoxaparin Sodium 80 MG/0.8 ML SYRINGE SC SCH ×2 (09:46→21:50)
[2021-02-14] MEDS: Dextrose 5% in Water 1,000 ML IV SCH (09:46)
[2021-02-14] MEDS: Famotidine 20 MG TAB PO SCH ×2 (09:46→21:51)
[2021-02-14] MEDS: Amiodarone 200 MG TAB PER TUBE SCH (09:46)
[2021-02-14] MEDS ORDERED: Furosemide 40 MG/4 ML VIAL SLOW IVP SCH ×2 (13:15)
[2021-02-14 13:18] LABS: Actual Bicarbonate (HCO3a) 45.5 mEq/L (22-28); Base Excess (BEa) 17.3 mEq/L (-2.0 to +3.0); CO2 Tension 76.2 mmHg (35.0-45.0); Calcium, Ionized (arterial) 1.22 mmol/L (1.12-1.30); Carboxyhemoglobin (COHb) 0.6 gm% (0.0-3.0); Hemoglobin (Hb) 11.3 g/dL (14.0-18.0); O2 Tension (PaO2), arterial 82.3 mmHg (> 70.0); Potassium - ABG Lab 3.45 mmol/L (3.70-5.30); pH, Arterial 7.39 (7.35-7.45)
[2021-02-14 13:20] LABS: Puncture Site LRA
[2021-02-14] MEDS: Potassium Chloride 20 MEQ in Premix Bag 1 BAG IVPB SCH ×2 (13:59→15:21)
[2021-02-14] MEDS: Mometasone 200 MCG/Formoterol 5 MCG 120 PUFF INHALER INH SCH (18:54)
[2021-02-14] MEDS: Morphine 4 MG/ML VIAL SLOW IVP PRN (21:56)
[2021-02-15] MEDS: Morphine 4 MG/ML VIAL SLOW IVP PRN (03:02)
[2021-02-15 04:44] LABS: #Lymphocytes 0.3 thou/uL (1.20-3.40); #Monocytes 0.8 thou/uL (0.11-0.59); #Neutrophils 15.5 thou/uL (1.40-6.50); %Eosinophils 0.2 % (0.0-10.0); %Lymphocytes 1.9 % (21.0-51.0); %Monocytes 4.8 % (0.0-10.0); %Neutrophils 93.1 % (42.0-75.0); Mean Corpuscular HGB CONC 30.8 g/dL (32.0-36.0); Mean Corpuscular Hemoglobin 28.2 pg (27.0-31.0); Mean Corpuscular Volume 91.5 fL (78.0-98.0); Platelet Count 226 thou/uL (130-400); RBC Distribution Width 14.2 % (11.5-14.5); Red Blood Cell (RBC) Count 3.92 mill/uL (4.70-6.10); White Blood Cell (WBC) Count 16.6 thou/uL (4.8-10.8)
[2021-02-15] MEDS: Dextrose 5% in Water 1,000 ML IV SCH (04:57)
[2021-02-15 05:05] LABS: ALT (SGPT) 40 U/L (8-55); AST (SGOT) 22 U/L (5-34); Alkaline Phosphatase 67 U/L (40-110); BUN (Urea Nitrogen) 45 mg/dL (8.4-25.7); Bilirubin, Total 0.7 mg/dL (0.2-1.2); Calc. Creatinine Clearance 149 mL/min (70-130); Globulin 2.6 g/dL (2.4-3.5); Glucose 158 mg/dL (83-110); Magnesium 2.7 mg/dL (1.6-2.6); Protein, Total 5.6 g/dL (5.8-8.1)
[2021-02-15 05:08] LABS: Phosphorus 3.4 mg/dL (2.3-4.7)
[2021-02-15 05:14] LABS: Anion Gap 14 mmol/L (10-20); Carbon Dioxide 39 mmol/L (23-31); Chloride 102 mmol/L (98-107); Potassium 3.9 mmol/L (3.5-5.1); Sodium 151 mmol/L (136-145)
[2021-02-15] MEDS: Mometasone 200 MCG/Formoterol 5 MCG 120 PUFF INHALER INH SCH ×2 (06:18→18:30)
[2021-02-15] MEDS: methylPREDNISolone Sod Succ 40 MG VIAL IVP SCH ×3 (06:31→21:15)
[2021-02-15] MEDS: Famotidine 20 MG TAB PO SCH ×2 (09:59→20:21)
[2021-02-15] MEDS: Amiodarone 200 MG TAB PER TUBE SCH (09:59)
[2021-02-15] MEDS: Enoxaparin Sodium 80 MG/0.8 ML SYRINGE SC SCH ×2 (09:59→21:08)
[2021-02-15] MEDS ORDERED: Furosemide 40 MG/4 ML VIAL SLOW IVP SCH (14:45)
[2021-02-16] MEDS: Dextrose 5% in Water 1,000 ML IV SCH ×2 (00:09→18:08)
[2021-02-16 04:33] LABS: Hemoglobin 10.6 g/dL (14.0-18.0); Mean Corpuscular HGB CONC 29.1 g/dL (32.0-36.0); Mean Corpuscular Volume 89.2 fL (78.0-98.0); Mean Platelet Volume 9.2 fL (7.4-10.4); Platelet Count 255 thou/uL (130-400); White Blood Cell (WBC) Count 20.5 thou/uL (4.8-10.8)
[2021-02-16 04:44] LABS: ALT (SGPT) 39 U/L (8-55); AST (SGOT) 25 U/L (5-34); Albumin 2.9 g/dL (3.4-4.8); Alkaline Phosphatase 67 U/L (40-110); BUN (Urea Nitrogen) 42 mg/dL (8.4-25.7); Calc. Creatinine Clearance 152 mL/min (70-130); Calcium 8.9 mg/dL (7.8-10.44); Globulin 2.3 g/dL (2.4-3.5); Glucose 137 mg/dL (83-110); Magnesium 2.3 mg/dL (1.6-2.6); Protein, Total 5.2 g/dL (5.8-8.1)
[2021-02-16 04:49] LABS: Phosphorus 2.5 mg/dL (2.3-4.7)
[2021-02-16 04:53] LABS: Anion Gap 18 mmol/L (10-20); Carbon Dioxide 36 mmol/L (23-31); Chloride 102 mmol/L (98-107); Potassium 3.6 mmol/L (3.5-5.1); Sodium 152 mmol/L (136-145)
[2021-02-16] MEDS: methylPREDNISolone Sod Succ 40 MG VIAL IVP SCH ×3 (05:14→20:58)
[2021-02-16 05:26] LABS: Band 9 % (5-11); Lymphocytes 4 % (21-51); MDiff Complete? YES; Monocytes 2 % (0-10); Neutrophil 85 % (42-75)
[2021-02-16] MEDS: Mometasone 200 MCG/Formoterol 5 MCG 120 PUFF INHALER INH SCH ×2 (07:41→19:23)
[2021-02-16] MEDS: Amiodarone 450 MG in Dextrose 5% in Water 250 ML IVPB SCH (09:27)
[2021-02-16] MEDS: Famotidine 20 MG TAB PO SCH ×2 (09:32→20:50)
[2021-02-16] MEDS: Enoxaparin Sodium 80 MG/0.8 ML SYRINGE SC SCH ×2 (09:41→20:43)
[2021-02-17] MEDS: Amiodarone 450 MG in Dextrose 5% in Water 250 ML IVPB SCH ×2 (01:17→16:05)
[2021-02-17 03:53] LABS: BUN (Urea Nitrogen) 34 mg/dL (8.4-25.7); Calc. Creatinine Clearance 152 mL/min (70-130); Glucose 161 mg/dL (83-110)
[2021-02-17 04:02] LABS: Anion Gap 16 mmol/L (10-20); Carbon Dioxide 36 mmol/L (23-31); Chloride 100 mmol/L (98-107); Potassium 3.7 mmol/L (3.5-5.1); Sodium 148 mmol/L (136-145)
[2021-02-17] MEDS: Mometasone 200 MCG/Formoterol 5 MCG 120 PUFF INHALER INH SCH ×2 (06:53→19:36)
[2021-02-17] MEDS: methylPREDNISolone Sod Succ 40 MG VIAL IVP SCH ×2 (10:05→21:05)
[2021-02-17] MEDS: Enoxaparin Sodium 80 MG/0.8 ML SYRINGE SC SCH ×2 (10:06→21:15)
[2021-02-17] MEDS: Famotidine 20 MG TAB PO SCH ×2 (10:07→21:14)
[2021-02-17] MEDS: Dextrose 5% in Water 1,000 ML IV SCH (16:05)
[2021-02-18] MEDS: Morphine 4 MG/ML VIAL SLOW IVP PRN (00:29)
[2021-02-18 05:14] LABS: #Basophils 0.1 thou/uL (0.0-0.2); #Lymphocytes 0.4 thou/uL (1.20-3.40); #Monocytes 0.8 thou/uL (0.11-0.59); #Neutrophils 24.1 thou/uL (1.40-6.50); %Basophils 0.5 % (0.0-1.0); %Eosinophils 0.1 % (0.0-10.0); %Lymphocytes 1.4 % (21.0-51.0); Hemoglobin 10.5 g/dL (14.0-18.0); Mean Corpuscular Hemoglobin 27.5 pg (27.0-31.0); Mean Corpuscular Volume 88.5 fL (78.0-98.0); Platelet Count 198 thou/uL (130-400); RBC Distribution Width 14.2 % (11.5-14.5); Red Blood Cell (RBC) Count 3.82 mill/uL (4.70-6.10); White Blood Cell (WBC) Count 25.4 thou/uL (4.8-10.8)
[2021-02-18 05:27] LABS: BUN (Urea Nitrogen) 29 mg/dL (8.4-25.7); Calc. Creatinine Clearance 156 mL/min (70-130); Calcium 9.1 mg/dL (7.8-10.44); Glucose 152 mg/dL (83-110)
[2021-02-18 05:36] LABS: Anion Gap 15 mmol/L (10-20); Carbon Dioxide 37 mmol/L (23-31); Chloride 98 mmol/L (98-107); Potassium 3.6 mmol/L (3.5-5.1); Sodium 146 mmol/L (136-145)
[2021-02-18] MEDS: Amiodarone 450 MG in Dextrose 5% in Water 250 ML IVPB SCH ×2 (06:46→21:53)
[2021-02-18] MEDS: Mometasone 200 MCG/Formoterol 5 MCG 120 PUFF INHALER INH SCH ×2 (07:39→20:16)
[2021-02-18] MEDS: Enoxaparin Sodium 80 MG/0.8 ML SYRINGE SC SCH ×2 (08:25→21:04)
[2021-02-18] MEDS: methylPREDNISolone Sod Succ 40 MG VIAL IVP SCH ×2 (08:25→21:04)
[2021-02-18] MEDS: Famotidine 20 MG TAB PO SCH ×2 (08:26→21:04)
[2021-02-18] MEDS: Lorazepam 2 MG/ML VIAL SLOW IVP PRN (09:57)
[2021-02-18] MEDS ORDERED: Furosemide 40 MG/4 ML VIAL SLOW IVP SCH (10:00)
[2021-02-18] MEDS ORDERED: Potassium Chloride 20 MEQ in Premix Bag 1 BAG IVPB SCH (10:30)
[2021-02-18] MEDS: Dextrose 5% in Water 1,000 ML IV SCH (12:42)
[2021-02-19 04:35] LABS: BUN (Urea Nitrogen) 25 mg/dL (8.4-25.7); Calc. Creatinine Clearance 150 mL/min (70-130); Calcium 8.9 mg/dL (7.8-10.44); Glucose 153 mg/dL (83-110)
[2021-02-19 04:43] LABS: Anion Gap 13 mmol/L (10-20); Carbon Dioxide 38 mmol/L (23-31); Chloride 95 mmol/L (98-107); Potassium 3.5 mmol/L (3.5-5.1); Sodium 142 mmol/L (136-145)
[2021-02-19] MEDS: Mometasone 200 MCG/Formoterol 5 MCG 120 PUFF INHALER INH SCH ×2 (08:33→19:16)
[2021-02-19] MEDS: Famotidine 20 MG TAB PO SCH ×2 (09:36→22:12)
[2021-02-19] MEDS: Lorazepam 2 MG/ML VIAL SLOW IVP PRN (09:36)
[2021-02-19] MEDS: methylPREDNISolone Sod Succ 40 MG VIAL IVP SCH ×2 (09:36→21:11)
[2021-02-19] MEDS: Enoxaparin Sodium 80 MG/0.8 ML SYRINGE SC SCH ×2 (09:36→21:11)
[2021-02-19] MEDS: Dextrose 5% in Water 1,000 ML IV SCH (09:45)
[2021-02-19] MEDS ORDERED: Furosemide 40 MG/4 ML VIAL SLOW IVP SCH (10:30)
[2021-02-19] MEDS ORDERED: Potassium Chloride 20 MEQ in Premix Bag 1 BAG IVPB SCH (11:00)
[2021-02-19] MEDS: Amiodarone 450 MG in Dextrose 5% in Water 250 ML IVPB SCH (13:30)
[2021-02-19] MEDS ORDERED: Sodium Acetate 2 mEq/ml 20 MEQ, Sodium Chloride 15 MEQ, Potassium ACETATE 10 MEQ, Potas... IV SCH (15:45)
[2021-02-19] MEDS ORDERED: AA 4.25 %/CALCIUM/LYTES/D5W 2,000 ML IV SCH (16:00)
[2021-02-19] MEDS: D5W-AA 4.25% with LYTES 1,000 ML IV SCH (18:25)
[2021-02-20 04:58] LABS: BUN (Urea Nitrogen) 24 mg/dL (8.4-25.7); Calc. Creatinine Clearance 158 mL/min (70-130); Calcium 8.5 mg/dL (7.8-10.44); Glucose 162 mg/dL (83-110)
[2021-02-20 05:08] LABS: Anion Gap 13 mmol/L (10-20); Carbon Dioxide 37 mmol/L (23-31); Chloride 95 mmol/L (98-107); Potassium 3.9 mmol/L (3.5-5.1); Sodium 141 mmol/L (136-145)
[2021-02-20] MEDS: Mometasone 200 MCG/Formoterol 5 MCG 120 PUFF INHALER INH SCH ×2 (07:28→19:08)
[2021-02-20] MEDS: Morphine 4 MG/ML VIAL SLOW IVP PRN ×2 (09:27→20:54)
[2021-02-20] MEDS: methylPREDNISolone Sod Succ 40 MG VIAL IVP SCH ×2 (09:29→20:50)
[2021-02-20] MEDS: Enoxaparin Sodium 80 MG/0.8 ML SYRINGE SC SCH ×2 (09:30→20:50)
[2021-02-20] MEDS: Famotidine 20 MG TAB PO SCH ×2 (09:31→21:00)
[2021-02-20] MEDS: Dextrose 5% in Water 1,000 ML IV SCH (09:31)
[2021-02-20] MEDS: Lorazepam 2 MG/ML VIAL SLOW IVP PRN ×2 (12:22→20:54)
[2021-02-20 12:50] VITALS: BMI 35.4
[2021-02-21] MEDS: Morphine 4 MG/ML VIAL SLOW IVP PRN ×3 (00:35→11:09)
[2021-02-21] MEDS: Lorazepam 2 MG/ML VIAL SLOW IVP PRN ×4 (00:35→21:59)
[2021-02-21 05:44] LABS: BUN (Urea Nitrogen) 23 mg/dL (8.4-25.7); Calc. Creatinine Clearance 164 mL/min (70-130); Calcium 8.7 mg/dL (7.8-10.44); Glucose 157 mg/dL (83-110)
[2021-02-21 05:54] LABS: Anion Gap 15 mmol/L (10-20); Carbon Dioxide 34 mmol/L (23-31); Chloride 95 mmol/L (98-107); Potassium 4.4 mmol/L (3.5-5.1); Sodium 140 mmol/L (136-145)
[2021-02-21] MEDS: Amiodarone 450 MG in Dextrose 5% in Water 250 ML IVPB SCH (06:39)
[2021-02-21] MEDS: Mometasone 200 MCG/Formoterol 5 MCG 120 PUFF INHALER INH SCH ×2 (07:07→18:45)
[2021-02-21] MEDS ORDERED: metFORMIN XR 500 MG TAB ONE (11:04)
[2021-02-21] MEDS: Enoxaparin Sodium 80 MG/0.8 ML SYRINGE SC SCH ×2 (11:08→21:55)
[2021-02-21] MEDS: Famotidine 20 MG TAB PO SCH ×2 (11:08→21:55)
[2021-02-21] MEDS: methylPREDNISolone Sod Succ 40 MG VIAL IVP SCH ×2 (11:08→21:55)
[2021-02-21 12:08] LABS: SARS-CoV-2 PCR by NAA Not Detected (NotDetected)
[2021-02-22] MEDS: Morphine 4 MG/ML VIAL SLOW IVP PRN ×5 (03:39→22:33)
[2021-02-22 04:20] LABS: Anion Gap 12 mmol/L (10-20); BUN (Urea Nitrogen) 27 mg/dL (8.4-25.7); Calc. Creatinine Clearance 167 mL/min (70-130); Calcium 9.1 mg/dL (7.8-10.44); Carbon Dioxide 37 mmol/L (23-31); Chloride 96 mmol/L (98-107); Glucose 154 mg/dL (83-110); Potassium 4.7 mmol/L (3.5-5.1); Sodium 140 mmol/L (136-145)
[2021-02-22] MEDS: Lorazepam 2 MG/ML VIAL SLOW IVP PRN ×4 (04:33→22:38)
[2021-02-22] MEDS: D5W-AA 4.25% with LYTES 1,000 ML IV SCH (09:01)
[2021-02-22] MEDS: methylPREDNISolone Sod Succ 40 MG VIAL IVP SCH ×2 (09:02→19:37)
[2021-02-22] MEDS: Famotidine 20 MG TAB PO SCH ×2 (09:03→19:47)
[2021-02-22] MEDS: Enoxaparin Sodium 80 MG/0.8 ML SYRINGE SC SCH ×2 (09:03→19:38)
[2021-02-22] MEDS: Mometasone 200 MCG/Formoterol 5 MCG 120 PUFF INHALER INH SCH ×2 (11:00→19:04)
[2021-02-22 12:28] VITALS: BP 140/58
[2021-02-23] MEDS: D5W-AA 4.25% with LYTES 1,000 ML IV SCH (02:36)
[2021-02-23] MEDS: Morphine 4 MG/ML VIAL SLOW IVP PRN ×3 (04:43→14:54)
[2021-02-23] MEDS: Lorazepam 2 MG/ML VIAL SLOW IVP PRN ×3 (04:43→14:55)
[2021-02-23] MEDS: Mometasone 200 MCG/Formoterol 5 MCG 120 PUFF INHALER INH SCH (07:20)
[2021-02-23 08:08] VITALS: TEMP 97.8
[2021-02-23] MEDS: Enoxaparin Sodium 80 MG/0.8 ML SYRINGE SC SCH (08:45)
[2021-02-23] MEDS: methylPREDNISolone Sod Succ 40 MG VIAL IVP SCH (08:45)
[2021-02-23] MEDS: Famotidine 20 MG TAB PO SCH (08:46)
== END 2021-02-23 15:28 | disposition hospice, home (50) | DRG 870 ==
LOC: ERS 17:30 → ERHOLD 19:33 → CCU 02-06 05:18 → IMCU/EMU 02-16 17:35
PROVIDERS: ADMIT Internal Medicine; ATTEND Internal Medicine
PROC: 0W9930Z Drainage of Right Pleural Cavity with Drainage Device, Percutaneous Approach (ICD-10-PCS; principal; 2021-02-05)
PROC: 5A1955Z Respiratory Ventilation, Greater than 96 Consecutive Hours (ICD-10-PCS; 2021-02-05)
PROC: 3E033XZ Introduction of Vasopressor into Peripheral Vein, Percutaneous Approach (ICD-10-PCS; 2021-02-05)
PROC: 02HV33Z Insertion of Infusion Device into Superior Vena Cava, Percutaneous Approach (ICD-10-PCS; 2021-02-05)
PROC: 5A12012 Performance of Cardiac Output, Single, Manual (ICD-10-PCS; 2021-02-05)
PROC: 0BH18EZ Insertion of Endotracheal Airway into Trachea, Via Natural or Artificial Opening Endoscopic (ICD-10-PCS; 2021-02-05)
PROC: 5A09557 Assistance with Respiratory Ventilation, Greater than 96 Consecutive Hours, Continuous Positive Airway Pressure (ICD-10-PCS; 2021-02-13)
DX: A41.9 Sepsis, unspecified organism (principal); I49.01 Ventricular fibrillation; I46.9 Cardiac arrest, cause unspecified; I50.33 Acute on chronic diastolic (congestive) heart failure; R65.21 Severe sepsis with septic shock; J96.21 Acute and chronic respiratory failure with hypoxia; J96.22 Acute and chronic respiratory failure with hypercapnia; J44.1 Chronic obstructive pulmonary disease with (acute) exacerbation; I13.0 Hypertensive heart and chronic kidney disease with heart failure and stage 1 through stage 4 chronic kidney disease, or unspecified chronic kidney disease; N17.9 Acute kidney failure, unspecified; E87.0 Hyperosmolality and hypernatremia; E87.3 Alkalosis; J93.83 Other pneumothorax; E87.1 Hypo-osmolality and hyponatremia; E78.00 Pure hypercholesterolemia, unspecified; I25.10 Atherosclerotic heart disease of native coronary artery without angina pectoris; I48.91 Unspecified atrial fibrillation; E78.5 Hyperlipidemia, unspecified; D64.9 Anemia, unspecified; Z20.822 Contact with and (suspected) exposure to COVID-19; E87.5 Hyperkalemia; R77.8 Other specified abnormalities of plasma proteins; D72.829 Elevated white blood cell count, unspecified; Z66 Do not resuscitate; E66.01 Morbid (severe) obesity due to excess calories; G47.33 Obstructive sleep apnea (adult) (pediatric); Z99.81 Dependence on supplemental oxygen; Z79.82 Long term (current) use of aspirin; Z79.899 Other long term (current) drug therapy; Z95.5 Presence of coronary angioplasty implant and graft; Z68.34 Body mass index [BMI] 34.0-34.9, adult; I25.2 Old myocardial infarction; Z95.1 Presence of aortocoronary bypass graft; Z78.1 Physical restraint status
CPT/HCPCS: 31500; 32551; 36415; 36416; 36556; 36600; 51702; 71045; 71275; 80048; 80053; 80202; 81003; 81015; 82550; 82553; 82805; 83605; 83735; 83880; 84100; 84145; 84484; 85025; 85610; 85730; 87040; 92950; 93005; 93010; 93306; 94002; 94003; 94640; 94660; 94760; 96365; 96366; 96368; 96375; 99292; J0171; J0282; J0610; J0692; J1120; J1650; J1940; J2060; J2270; J2704; J2920; J2930; J3010; J3370; J3480; J3490; J7030; J7070; J7620; Q9967; U0002; U0003; U0005